=== PATIENT | male | born 1960 | race Caucasian/White ===

== ENCOUNTER 2017-11-14 10:08 | Outpatient (CLI) | payer OTHER | END 2017-11-14 10:09 | disposition home or self-care (01) | LOC: CTENTCT 10:08 | PROVIDERS: ATTEND Specialist | DX: J31.0 Chronic rhinitis (principal) | CPT/HCPCS: 70486 ==

== ENCOUNTER 2019-12-03 06:48 | Day surgery (SDC) | payer OTHER ==
[2019-12-01 10:47] VITALS: BMI 26.1
[2019-12-03] MEDS ORDERED: Fentanyl 100 MCG/2 ML VIAL ONE ×3 (07:21→10:47)
[2019-12-03] MEDS ORDERED: Midazolam HCl 2 mg/2 ml Vial ONE ×2 (07:21→09:14)
[2019-12-03] MEDS ORDERED: Ropivacaine 0.2% HCl/PF 0 ML ONE (07:21)
[2019-12-03] MEDS ORDERED: Lidocaine 1% (PF) 30 ML VIAL ONE ×2 (07:21→08:56)
[2019-12-03 08:26] LABS: #Basophils 0.1 thou/uL (0.0-0.2); #Eosinphils 0.2 thou/uL (0.0-0.7); #Lymphocytes 2.2 thou/uL (1.20-3.40); #Monocytes 0.6 thou/uL (0.11-0.59); #Neutrophils 4.4 thou/uL (1.40-6.50); %Eosinophils 2.3 % (0.0-10.0); %Lymphocytes 29.9 % (21.0-51.0); %Monocytes 7.6 % (0.0-10.0); %Neutrophils 59.1 % (42.0-75.0); Hemoglobin 15.1 g/dL (14.0-18.0); Mean Corpuscular HGB CONC 34.3 g/dL (32.0-36.0); Mean Corpuscular Hemoglobin 32.9 pg (27.0-31.0); Mean Corpuscular Volume 95.7 fL (78.0-98.0); Mean Platelet Volume 7.6 fL (7.4-10.4); Platelet Count 233 thou/uL (130-400); RBC Distribution Width 12.2 % (11.5-14.5); Red Blood Cell (RBC) Count 4.61 mill/uL (4.70-6.10); White Blood Cell (WBC) Count 7.4 thou/uL (4.8-10.8)
[2019-12-03] MEDS ORDERED: Bupivacaine HCl 0.5%/Epinephrine 1:200,000/PF 30 ml Vial ONE (09:35)
[2019-12-03] MEDS ORDERED: PROPOFOL 200 MG/20 ML VIAL ONE (11:08)
[2019-12-03] MEDS ORDERED: Dexamethasone 20 MG/5 ML VIAL ONE (11:08)
[2019-12-03] MEDS ORDERED: Ondansetron PF 4 MG/2 ML Vial ONE (11:08)
[2019-12-03] MEDS ORDERED: Ketorolac Tromethamine 30 MG/ML VIAL ONE (11:08)
[2019-12-03] MEDS ORDERED: Lidocaine 1% PF 5 ML VIAL ONE (11:08)
[2019-12-03] MEDS ORDERED: HYDROcodone/Acetaminophen 5/325 mg Tablet ONE (12:26)
--- NOTE | 2019-12-03 13:43 | OP ---
DATE OF PROCEDURE: 12/03/2019 TITLE OF PROCEDURE: Left biceps distal repair. ASSOCIATE BROKER: Bre Salinas PA-C BLOOD LOSS: Minimal. SPECIMENS: None. DRAINS: None. COMPLICATIONS: None. TOURNIQUET TIME: 24 minutes. DESCRIPTION OF PROCEDURE: The patient was taken to the operating room where general anesthesia was induced. Left arm was prepped and draped in sterile fashion. After exsanguination, tourniquet was inflated to 250 mmHg. I made an oblique incision in the antecubital fossa. Dissection was carried down to the fascia. I was able to identify the passage down to the radial tuberosity. The radial tuberosity was exposed. I freed the soft tissue around the radial tubercle and then placed 2 retractors either side of it. I was able to drill a transradial Beath pin, made a unicortical drill hole 7 mm, which correlated to the size of the biceps tendon. I used a modified Krackow type stitch in the biceps tendon about 25 mm to obtain excellent purchase proximally. This suture was then woven through a Toggle-Lock type device. This was passed through the cortical bone, deployed, and the tendon was pulled and delivered into the radius. The needle was then used to pass the suture back through the tendon and then it was tied back to itself for good stable repair. Tourniquet was released. Irrigation was obtained. Hemostasis was obtained as needed proximally and distally and superficially. The subcutaneous tissue was closed with 2-0 Vicryl. Skin was closed genevieve. Sterile dressings applied. The patient was placed in a splint. Job ID: [id number]
== END 2019-12-03 13:20 | disposition home or self-care (01) ==
LOC: SDC 06:48
PROVIDERS: ATTEND Orthopaedic Surgery
PROC: 0LM40ZZ Reattachment of Left Upper Arm Tendon, Open Approach (ICD-10-PCS; principal; 2019-12-03)
DX: S46.212A Strain of muscle, fascia and tendon of other parts of biceps, left arm, initial encounter (principal); E78.5 Hyperlipidemia, unspecified; M19.90 Unspecified osteoarthritis, unspecified site; F32.9 Major depressive disorder, single episode, unspecified; E55.9 Vitamin D deficiency, unspecified; Z87.891 Personal history of nicotine dependence; Z79.82 Long term (current) use of aspirin; Z79.899 Other long term (current) drug therapy; Z91.09 Other allergy status, other than to drugs and biological substances; X50.0XXA Overexertion from strenuous movement or load, initial encounter; Y99.0 Civilian activity done for income or pay
CPT/HCPCS: 36415; 85025; C1713; J0670; J0690; J1100; J1885; J2001; J2250; J2405; J2704; J2795; J3010